=== PATIENT | female | born 1955 | race African-American/Black ===

== ENCOUNTER → 2016-07-28 | Outpatient (CLI) | payer OTHER ==
[2014-11-22 17:21] VITALS: BP 143/88
[~2016-07-28] MED LIST: ACET-704 PO; AMLO1CAP2 PO; BUDE10.2 IH; GOLI50DI SQ; PRED2.5T PO; WARF4TAB7 PO
[2016-07-28 16:35] LABS: INR 1.2 (0.8-1.1); PROTHROMBIN TIME PATIENT 14.5 SEC (11.7-14.0)
== END | disposition home or self-care (01) ==
LOC: LAB 15:59
PROVIDERS: ATTEND Nurse Practitioner Family
DX: Z79.01 Long term (current) use of anticoagulants (principal); Z86.718 Personal history of other venous thrombosis and embolism
CPT/HCPCS: 36415; 85610

== ENCOUNTER 2016-11-03 15:30 | Emergency (ER) | payer OTHER ==
[~2016-11-03] VITALS: Ht 162.6 cm; Wt 74.4 kg
--- NOTE | 2016-11-03 16:36 | RAD ---
Exam performed: Left lower extremity venous Doppler. Clinical Indication: Left leg swelling Date of Service:11/03/16 Comparison : None available Discussion: Multiple longitudinal and transverse high resolution real-time images of the venous system of left lower extremity were obtained with color and Doppler sampling and spectral analysis. The common femoral, superficial femoral, popliteal and proximal calf veins are all patent and demonstrate normal flow and compressibility. Normal respiratory phasicity and augmentation is present. Impression: Normal color duplex ultrasound of the venous system of left lower extremity.
[2016-11-03 17:00] LABS: INR 1.9 (0.8-1.1); PROTHROMBIN TIME PATIENT 20.8 SEC (11.7-14.0)
[2016-11-03 17:02] VITALS: BP 120/81
[2016-11-03] MEDS ORDERED: HYDR-971 PO (17:07)
--- NOTE | 2016-11-03 17:07 | PHYS DOC ---
Past Medical History Past Medical History: Arthritis, Diabetes-Type II, DVT, Hypothyroid, Kidney Stone Past Surgical History: Other Additional Past Surgical Histo: bilat knee, r hip, kidney stents Drug Use: None Adult General Chief Complaint Chief Complaint: LOWER EXTREMITY SWELLING [facility] HPI Patient is a 61 year old female presenting to the emergency department for evaluation of left anterior tomlin swelling and pain that has been present for several days. The nurse at school told her it could be a DVT and sent her for further evaluation. Patient says she has some pain there but she denies any trauma or overuse. She is already on Coumadin. Review of Systems Review of Systems Constitutional: Denies fever or chills [] Respiratory: Denies cough or shortness of breath [] Cardiovascular: No additional information not addressed in HPI [] Musculoskeletal: Denies back pain or joint pain [] Integument: Denies rash or skin lesions [] Neurologic: Denies headache, focal weakness or sensory changes [] Allergies Allergies Allergies Coded Allergies Type Severity Reaction Last Updated Verified No Known Drug Allergies 11/22/14 No Physical Exam Physical Exam Constitutional: Well developed, well nourished, no acute distress, non-toxic appearance. [] Cardiovascular:Heart rate regular rhythm, no murmur [] Lungs & Thorax: Bilateral breath sounds clear to auscultation [] Abdomen: Bowel sounds normal, soft, no tenderness, no masses, no pulsatile masses. [] Skin: Warm, dry, no erythema, no rash. [] Extremities: Left anterior tomlin with approximate 5 x 3 area swelling but no redness warmth or erythema. Neurologic: Alert and oriented X 3, normal motor function, normal sensory function, no focal deficits noted. [] Current Patient Data Vital Signs Vital Signs Date Time Temp Pulse Resp B/P (MAP) Pulse Ox O2 Delivery O2 Flow Rate FiO2 11/03/16 17:02 78 18 120/81 (94) 97 Room Air 11/03/16 16:02 97.9 97.9 Lab Values Laboratory Tests Test 11/03/16 16:34 White Blood Count 8.2 x10^3/uL (4.0-11.0) Red Blood Count 5.03 x10^6/uL (3.50-5.40) Hemoglobin 14.9 g/dL (12.0-15.5) Hematocrit 44.0 % (36.0-47.0) Mean Corpuscular Volume 88 fL (79-100) Mean Corpuscular Hemoglobin 30 pg (25-35) Mean Corpuscular Hemoglobin Concent 34 g/dL (31-37) Red Cell Distribution Width 16.0 % (11.5-14.5) H Platelet Count 212 x10^3/uL (140-400) Neutrophils (%) (Auto) 71 % (31-73) Lymphocytes (%) (Auto) 21 % (24-48) L Monocytes (%) (Auto) 7 % (0-9) Eosinophils (%) (Auto) 0 % (0-3) Basophils (%) (Auto) 1 % (0-3) Neutrophils # (Auto) 5.8 x10^3uL (1.8-7.7) Lymphocytes # (Auto) 1.7 x10^3/uL (1.0-4.8) Monocytes # (Auto) 0.6 x10^3/uL (0.0-1.1) Eosinophils # (Auto) 0.0 x10^3/uL (0.0-0.7) Basophils # (Auto) 0.0 x10^3/uL (0.0-0.2) Prothrombin Time 20.8 SEC (11.7-14.0) H Prothrombin Time INR 1.9 (0.8-1.1) H PTT 31 SEC (24-38) Sodium Level 141 mmol/L (136-145) Potassium Level 4.2 mmol/L (3.5-5.1) Chloride Level 105 mmol/L (98-107) Carbon Dioxide Level 28 mmol/L (21-32) Anion Gap 8 (6-14) Blood Urea Nitrogen 22 mg/dL (7-20) H Creatinine 1.0 mg/dL (0.6-1.0) Estimated GFR (Cockcroft-Gault) 67.8 BUN/Creatinine Ratio 22 (6-20) H Glucose Level 101 mg/dL (70-99) H Calcium Level 10.1 mg/dL (8.5-10.1) Total Bilirubin 0.4 mg/dL (0.2-1.0) Aspartate Amino Transferase (AST) 23 U/L (15-37) Alanine Aminotransferase (ALT) 34 U/L (14-59) Alkaline Phosphatase 93 U/L (46-116) Total Protein 7.8 g/dL (6.4-8.2) Albumin 3.5 g/dL (3.4-5.0) Albumin/Globulin Ratio 0.8 (1.0-1.7) L Laboratory Tests 11/03/16 16:34 Laboratory Tests 11/03/16 16:34 EKG EKG [] Radiology/Procedures Radiology/Procedures Exam performed: Left lower extremity venous Doppler. Clinical Indication: Left leg swelling Date of Service:11/03/16 Comparison : None available Discussion: Multiple longitudinal and transverse high resolution real-time images of the venous system of left lower extremity were obtained with color and Doppler sampling and spectral analysis. The common femoral, superficial femoral, popliteal and proximal calf veins are all patent and demonstrate normal flow and compressibility. Normal respiratory phasicity and augmentation is present. Impression: Normal color duplex ultrasound of the venous system of left lower extremity. DICTATED and SIGNED BY: TANNER NORIEGA MD DATE: 11/03/16 1633 Course & Med Decision Making Course & Med Decision Making Patient with left anterior tomlin swelling. We'll treat with rest NSAIDs and PCP follow-up next week to ensure improvement. Dragon Disclaimer Dragon Disclaimer This electronic medical record was generated, in whole or in part, using a voice recognition dictation system. Departure Departure Impression: Primary Impression: Leg pain, left Disposition: 01 HOME, SELF-CARE Condition: GOOD Referrals: FAM FARMER APRN (PCP) Patient Instructions: Myalgia, Adult Additional Instructions: TAKE 400MG OF IBUPROFEN EVERY 6 HOURS. PUT ICE ON YOUR LEG, REST IT, ELEVATE IT. FOLLOW WITH YOUR PCP NEXT WEEK TO ENSURE IMPROVEMENT AND COME BACK SOONER WITH ANY NEW OR WORSENING SYMPTOMS. THANK YOU! Scripts Hydrocodone/Apap 5-325 (NORCO 5-325 TABLET) 1 Each Tablet 1 TAB PO PRN Q6HRS Y for PAIN, #10 TAB 0 Refills Prov: SUNDAR RAMEY DO 11/03/16 SUNDAR RAMEY DO November 03, 2016 17:07
[2016-11-03 17:10] LABS: CALCIUM 10.1 mg/dL (8.5-10.1); GFR 67.8; POTASSIUM 4.2 mmol/L (3.5-5.1)
[2016-11-03 17:16] LABS: ALBUMIN 3.5 g/dL (3.4-5.0); ALBUMIN/GLOBULIN RATIO 0.8 (1.0-1.7); TOTAL BILIRUBIN 0.4 mg/dL (0.2-1.0); TOTAL PROTEIN 7.8 g/dL (6.4-8.2)
[2016-11-03 17:17] LABS: BASO % 1 % (0-3); EOS % 0 % (0-3); HEMOGLOBIN 14.9 g/dL (12.0-15.5); LYMPH # 1.7 x10^3/uL (1.0-4.8); LYMPH % 21 % (24-48); MEAN CORPUSCULAR HEMOGLOBIN 30 pg (25-35); MEAN CORPUSCULAR HGB CONC 34 g/dL (31-37); MEAN CORPUSCULAR VOLUME 88 fL (79-100); MONO % 7 % (0-9); NEUT % 71 % (31-73); PLATELET COUNT 212 x10^3/uL (140-400); RED BLOOD COUNT 5.03 x10^6/uL (3.50-5.40); WHITE BLOOD COUNT 8.2 x10^3/uL (4.0-11.0)
== END 2016-11-03 17:20 | disposition home or self-care (01) ==
LOC: ER 15:30
DX: M79.662 Pain in left lower leg (principal); R22.42 Localized swelling, mass and lump, left lower limb; M19.90 Unspecified osteoarthritis, unspecified site; E11.9 Type 2 diabetes mellitus without complications; E03.9 Hypothyroidism, unspecified; Z86.718 Personal history of other venous thrombosis and embolism; Z98.890 Other specified postprocedural states
CPT/HCPCS: 36415; 80053; 85027; 85610; 85730; 93971; 99285-25

== ENCOUNTER → 2017-03-03 | Outpatient (CLI) | payer OTHER ==
[~2017-03-03] MED LIST changes: +HYDR-971 PO
--- NOTE | 2017-03-03 13:03 | RAD ---
DATE: 03/03/2017 EXAM: DIGITAL SCREEN BILAT W/CAD HISTORY: Screening COMPARISON: 02/26/2016 This study was interpreted with the benefit of Computerized Aided Detection (CAD). FINDINGS: Breast Density: SCATTERED The breast parenchyma shows scattered fibroglandular densities. Breast parenchyma level B. There are benign-appearing calcifications in the breasts. There are lymph nodes noted in both axilla. There has not been a significant change in the appearance of the breasts compared to the previous exam IMPRESSION: Benign findings BI-RADS CATEGORY: 2 BENIGN FINDING(S) RECOMMENDED FOLLOW-UP: 12M 12 MONTH FOLLOW-UP PQRS compliance statement: Patient information was entered into a reminder system with a target due date 03/03/2018 for the next mammogram. Mammography is a sensitive method for finding small breast cancers, but it does not detect them all and is not a substitute for careful clinical examination. A negative mammogram does not negate a clinically suspicious finding and should not result in delay in biopsying a clinically suspicious abnormality. "Our facility is accredited by the [employer] Mammography Program."
== END | disposition home or self-care (01) ==
LOC: MAMMO 10:42
PROVIDERS: ATTEND Nurse Practitioner Family
DX: Z12.31 Encounter for screening mammogram for malignant neoplasm of breast (principal)
CPT/HCPCS: G0202; 77067

== ENCOUNTER → 2017-07-21 | Outpatient (CLI) | payer OTHER ==
[2017-07-21 13:20] LABS: ADD MAN DIFF? NO
[2017-07-21 13:32] LABS: BASO % 1 % (0-3); EOS % 0 % (0-3); HEMATOCRIT 45.1 % (36.0-47.0); HEMOGLOBIN 14.5 g/dL (12.0-15.5); LYMPH % 23 % (24-48); MEAN CORPUSCULAR HEMOGLOBIN 29 pg (25-35); MEAN CORPUSCULAR HGB CONC 32 g/dL (31-37); MEAN CORPUSCULAR VOLUME 88 fL (79-100); MONO # 0.3 x10^3/uL (0.0-1.1); MONO % 3 % (0-9); NEUT # 6.7 x10^3uL (1.8-7.7); NEUT % 74 % (31-73); PLATELET COUNT 219 x10^3/uL (140-400); RED CELL DISTRIBUTION WIDTH 15.3 % (11.5-14.5)
[2017-07-21 13:45] LABS: ALBUMIN 3.6 g/dL (3.4-5.0); ALBUMIN/GLOBULIN RATIO 0.8 (1.0-1.7); ALK PHOS 80 U/L (46-116); ALT (SGPT) 23 U/L (14-59); ANION GAP 13 (6-14); AST (SGOT) 16 U/L (15-37); BLOOD UREA NITROGEN 18 mg/dL (7-20); BUN/CREATININE RATIO 16 (6-20); CALCIUM 9.8 mg/dL (8.5-10.1); CARBON DIOXIDE 23 mmol/L (21-32); CHLORIDE 109 mmol/L (98-107); CHOLESTEROL 231 mg/dL (0-200); CHOLESTEROL/HDL RATIO 3.1; CREATININE 1.1 mg/dL (0.6-1.0); GFR 60.7; GLUCOSE 210 mg/dL (70-99); HDLC 74 mg/dL (40-60); LDLC 138 mg/dL (0-100); NON-HDL CHOLESTEROL 157 mg/dL (0-129); POTASSIUM 4.3 mmol/L (3.5-5.1); SODIUM 145 mmol/L (136-145); TOTAL BILIRUBIN 0.2 mg/dL (0.2-1.0); TOTAL PROTEIN 7.9 g/dL (6.4-8.2); TRIGLYCERIDES 94 mg/dL (0-150); VLDLC 19 mg/dL (0-40)
[2017-07-21 14:10] LABS: FREE T4 0.66 ng/dL (0.76-1.46)
[2017-07-21 14:10] LABS: THYROID STIM HORMONE (TSH) 0.687 uIU/mL (0.358-3.74)
[2017-07-21 19:18] LABS: HEMOGLOBIN A1C 6.8 % (4.8-5.6)
== END | disposition home or self-care (01) ==
LOC: LAB 13:09
DX: I10 Essential (primary) hypertension (principal); E11.9 Type 2 diabetes mellitus without complications; E78.00 Pure hypercholesterolemia, unspecified; E05.90 Thyrotoxicosis, unspecified without thyrotoxic crisis or storm
CPT/HCPCS: 36415; 80053; 80061; 83036; 84439; 84443; 85025

== ENCOUNTER → 2017-10-08 | Outpatient (CLI) | payer OTHER ==
[2017-10-08 08:55] LABS: ALBUMIN 3.4 g/dL (3.4-5.0); ALBUMIN/GLOBULIN RATIO 0.8 (1.0-1.7); ALK PHOS 89 U/L (46-116); ALT (SGPT) 30 U/L (14-59); ANION GAP 10 (6-14); AST (SGOT) 18 U/L (15-37); BLOOD UREA NITROGEN 14 mg/dL (7-20); BUN/CREATININE RATIO 13 (6-20); CALCIUM 10.1 mg/dL (8.5-10.1); CARBON DIOXIDE 24 mmol/L (21-32); CHLORIDE 107 mmol/L (98-107); CHOLESTEROL 263 mg/dL (0-200); CREATININE 1.1 mg/dL (0.6-1.0); GFR 60.5; GLUCOSE 108 mg/dL (70-99); HDLC 69 mg/dL (40-60); LDLC 172 mg/dL (0-100); NON-HDL CHOLESTEROL 194 mg/dL (0-129); POTASSIUM 3.5 mmol/L (3.5-5.1); SODIUM 141 mmol/L (136-145); TOTAL BILIRUBIN 0.5 mg/dL (0.2-1.0); TOTAL PROTEIN 7.7 g/dL (6.4-8.2); TRIGLYCERIDES 111 mg/dL (0-150); VLDLC 22 mg/dL (0-40)
[2017-10-08 08:57] LABS: CHOLESTEROL/HDL RATIO 3.8
== END | disposition home or self-care (01) ==
LOC: LAB 08:17
DX: E78.00 Pure hypercholesterolemia, unspecified (principal)
CPT/HCPCS: 36415; 80053; 80061

== ENCOUNTER → 2017-11-19 | Outpatient (CLI) | payer OTHER ==
[2017-11-20 01:14] LABS: HEMOGLOBIN A1C 7.1 % (4.8-5.6)
== END | disposition home or self-care (01) ==
LOC: LAB 11:50
DX: E11.9 Type 2 diabetes mellitus without complications (principal); I10 Essential (primary) hypertension; E78.00 Pure hypercholesterolemia, unspecified
CPT/HCPCS: 36415; 83036

== ENCOUNTER → 2018-02-16 | Outpatient (CLI) | payer OTHER ==
[~2018-02-16] MED LIST changes: +WARF4TAB64 PO; -WARF4TAB7 PO
[2018-02-16 14:26] LABS: PROTHROMBIN TIME PATIENT 18.8 SEC (11.7-14.0)
== END | disposition home or self-care (01) ==
LOC: LAB 13:53
PROVIDERS: ATTEND Nurse Practitioner Family
DX: Z51.81 Encounter for therapeutic drug level monitoring (principal); I10 Essential (primary) hypertension; E11.9 Type 2 diabetes mellitus without complications; E78.00 Pure hypercholesterolemia, unspecified; M19.90 Unspecified osteoarthritis, unspecified site; Z72.0 Tobacco use; Z86.718 Personal history of other venous thrombosis and embolism; Z79.01 Long term (current) use of anticoagulants
CPT/HCPCS: 36415; 85610

== ENCOUNTER → 2018-03-04 | Outpatient (CLI) | payer OTHER ==
--- NOTE | 2018-03-04 10:40 | RAD ---
DATE: 03/04/2018 EXAM: MAMMO LUCILA SCREENING BILATERAL HISTORY: Routine screening COMPARISON: 03/03/2017 This study was interpreted with the benefit of Computerized Aided Detection (CAD). Breast Density: HETERO The breast parenchyma is heterogenously dense, which could reduce sensitivity of mammography. Breast parenchyma level C. FINDINGS: 2-D and 3-D tomosynthesis imaging was performed in CC and MLO projections. The fibroglandular tissues are heterogeneously multinodular pattern. There are also calcified fibroadenomas. Additional scattered coarse and more indeterminant type microcalcifications in both breasts appear unchanged. Benign lymph node type densities are present in the axillary regions. IMPRESSION: Stable mammograms without evidence of malignancy. BI-RADS CATEGORY: 2 BENIGN FINDING(S) RECOMMENDED FOLLOW-UP: 12M 12 MONTH FOLLOW-UP PQRS compliance statement: Patient information was entered into a reminder system with a target due date for the next mammogram. Mammography is a sensitive method for finding small breast cancers, but it does not detect them all and is not a substitute for careful clinical examination. A negative mammogram does not negate a clinically suspicious finding and should not result in delay in biopsying a clinically suspicious abnormality. "Our facility is accredited by the [employer] Mammography Program."
== END | disposition home or self-care (01) ==
LOC: MAMMO 09:00
PROVIDERS: ATTEND Nurse Practitioner Family
DX: Z12.31 Encounter for screening mammogram for malignant neoplasm of breast (principal); I10 Essential (primary) hypertension; E11.9 Type 2 diabetes mellitus without complications; E78.00 Pure hypercholesterolemia, unspecified; E03.9 Hypothyroidism, unspecified; Z86.718 Personal history of other venous thrombosis and embolism
CPT/HCPCS: 77063; 77067

== ENCOUNTER → 2018-03-23 | Outpatient (CLI) | payer OTHER ==
[2018-03-23 14:04] LABS: PROTHROMBIN TIME PATIENT 22.8 SEC (11.7-14.0)
== END | disposition home or self-care (01) ==
LOC: LAB 13:32
PROVIDERS: ATTEND Nurse Practitioner Family
DX: Z51.81 Encounter for therapeutic drug level monitoring (principal); Z79.01 Long term (current) use of anticoagulants
CPT/HCPCS: 36415; 85610

== ENCOUNTER → 2018-09-08 | Outpatient (CLI) | payer BC, OTHER ==
[~2018-09-08] MED LIST changes: +HYDR-3164 PO; -HYDR-971 PO
--- NOTE | 2018-09-08 14:13 | KCIC ---
EXAM: Lumbar spine MRI without contrast. HISTORY: Lower back pain and lower extremity radiculopathy. TECHNIQUE: Multiplanar, multisequence magnetic resonance imaging of the lumbar spine was performed without contrast. COMPARISON: None. FINDINGS: There is grade 1 anterolisthesis of L3 on L4, measuring 4 mm. There is degenerative endplate remodeling with disc space narrowing and disc desiccation at this level. There is additional mild endplate remodeling and minimal disc desiccation at L5-S1. There is diffusely heterogeneous marrow signal intensity. This can be seen with heterogeneous fatty marrow placement. There is no corresponding increased signal on inversion recovery images associated with the marrow to suggest osseous metastatic disease. The conus terminates at T12-L1. At L1-L2, there is no stenosis. At L2-L3, there is minimal facet arthropathy. There is no stenosis. At L3-L4, there is a posterior central disc protrusion and there are bilateral foraminal to extra foraminal disc protrusions with slight superior extrusions superimposed on a disc bulge and endplate remodeling. There is moderate facet arthropathy. There is hypertrophy of the ligamentum flavum. There is grade 1 anterolisthesis. There is mild bilateral foraminal stenosis with abutment of the exiting L3 nerve roots. There is moderate central canal stenosis. At L4-L5, there is mild right lateral predominant endplate remodeling. There is no stenosis. At L5-S1, there is mild right facet arthropathy. There is no stenosis. IMPRESSION: 1. Multilevel degenerative change of the lumbar spine, primarily at L3-L4. This is described in detail above and is associated with mild bilateral foraminal stenosis and abutment of the exiting L3 nerve roots and moderate central canal stenosis at this level. 2. Grade 1 anterolisthesis of L3 on L4. Electronically signed by: Aminah Jackson MD (09/08/2018 2:09 PM) [email or web address]
== END | disposition home or self-care (01) ==
LOC: KCIC MRI 12:49
PROVIDERS: ATTEND Nurse Practitioner Family
DX: M48.061 Spinal stenosis, lumbar region without neurogenic claudication (principal); M47.26 Other spondylosis with radiculopathy, lumbar region; M51.16 Intervertebral disc disorders with radiculopathy, lumbar region; M12.88 Other specific arthropathies, not elsewhere classified, other specified site
CPT/HCPCS: 72148

== ENCOUNTER → 2018-10-07 | Outpatient (CLI) | payer BC, OTHER ==
[2018-10-07 08:29] LABS: BILIRUBIN,URINE NEGATIVE (NEG); CLARITY,URINE CLEAR; COLOR,URINE YELLOW; NITRITE,URINE NEGATIVE (NEG); PH,URINE 5.5; PROTEIN,URINE NEGATIVE (NEG-TRACE); UROBILINOGEN,URINE 0.2 mg/dL (0.2 mg/dL)
[2018-10-07 08:39] LABS: BACTERIA,URINE MANY /HPF (0-FEW); SQUAMOUS EPITHELIAL CELL,UR MANY /LPF
[2018-10-07 08:40] LABS: RBC,URINE OCC /HPF (0-2)
[2018-10-07 08:44] LABS: ALBUMIN 3.6 g/dL (3.4-5.0); ALBUMIN/GLOBULIN RATIO 0.9 (1.0-1.7); CALCIUM 10.2 mg/dL (8.5-10.1); CREATININE 1.1 mg/dL (0.6-1.0); GFR 60.3; POTASSIUM 4.4 mmol/L (3.5-5.1); TOTAL BILIRUBIN 0.4 mg/dL (0.2-1.0); TOTAL PROTEIN 7.5 g/dL (6.4-8.2)
[2018-10-07 08:55] LABS: CHOLESTEROL/HDL RATIO 3.6
[2018-10-07 13:21] LABS: CREAT RD UR 166.3 mg/dL (Not Estab.); MICRO CREAT RATIO 2.8 mg/g creat (0.0-30.0); MICROALB RD UR 4.7 ug/mL (Not Estab.)
[2018-10-10 17:59] LABS: FECAL OB PT POSITIVE (NEG)
== END | disposition home or self-care (01) ==
LOC: LAB 07:34
PROVIDERS: ATTEND Family Medicine
DX: Z12.11 Encounter for screening for malignant neoplasm of colon (principal); I10 Essential (primary) hypertension; E78.00 Pure hypercholesterolemia, unspecified; R73.09 Other abnormal glucose; Z79.01 Long term (current) use of anticoagulants; Z79.899 Other long term (current) drug therapy
CPT/HCPCS: 36415; 80053; 80061; 81001; 82043; 82274; 82570; 83036; 85610; 87086

== ENCOUNTER → 2019-01-13 | Day surgery (SDC) | payer BC, MEDICAID ==
[~2019-01-13] MED LIST changes: +HYDROmorphone 2 MG/ML VIAL IV PRN; +IV RINGERS,LACTATED 1000ML 1,000 ML IV SCH; +MORPHINE SULFATE 2 MG/ML VIAL. IV PRN; +ONDANSETRON PF 4 MG/2 ML VIAL. IV PRN; +PROCHLORPERAZINE 10 MG/2 ML VIAL. IV PRN; +PROPOFOL 20 ML IV ONE; +fentaNYL PF VIAL 100 MCG/2 ML VIAL IV PRN
[2019-01-13 10:30] VITALS: BP 140/69
== END ==
LOC: ENDOS 08:26
PROVIDERS: ATTEND Internal Medicine Gastroenterology
DX: K64.0 First degree hemorrhoids (principal); K29.70 Gastritis, unspecified, without bleeding; K21.0 Gastro-esophageal reflux disease with esophagitis; I10 Essential (primary) hypertension; F15.90 Other stimulant use, unspecified, uncomplicated; Z98.890 Other specified postprocedural states; Z86.010 Personal history of colon polyps; Z86.718 Personal history of other venous thrombosis and embolism; Z87.891 Personal history of nicotine dependence; Z96.653 Presence of artificial knee joint, bilateral; Z96.641 Presence of right artificial hip joint
CPT/HCPCS: 45378; J2704

== ENCOUNTER → 2019-04-13 | Outpatient (CLI) | payer BC, MEDICAID ==
[2019-01-13 10:30] VITALS: BP 140/69
[~2019-04-13] MED LIST changes: -HYDROmorphone 2 MG/ML VIAL IV PRN; -IV RINGERS,LACTATED 1000ML 1,000 ML IV SCH; -MORPHINE SULFATE 2 MG/ML VIAL. IV PRN; -ONDANSETRON PF 4 MG/2 ML VIAL. IV PRN; -PROCHLORPERAZINE 10 MG/2 ML VIAL. IV PRN; -PROPOFOL 20 ML IV ONE; -fentaNYL PF VIAL 100 MCG/2 ML VIAL IV PRN
--- NOTE | 2019-04-13 16:16 | RAD ---
DATE: 04/13/2019 EXAM: MAMMO LUCILA SCREENING BILATERAL HISTORY: Routine screening COMPARISON: 02/26/2016, 03/03/2017 and 03/04/2018 mammographic exams This study was interpreted with the benefit of Computerized Aided Detection (CAD). Breast Density: HETERO The breast parenchyma is heterogenously dense, which could reduce sensitivity of mammography. Breast parenchyma level C. FINDINGS: Numerous benign-appearing calcifications are present bilaterally. Some of these appear to correspond to calcified fibroadenomas. No suspicious calcification clusters or distortion. Small masses are stable. No new masses. IMPRESSION: Stable BI-RADS CATEGORY: 1 NEGATIVE RECOMMENDED FOLLOW-UP: 12M 12 MONTH FOLLOW-UP PQRS compliance statement: Patient information was entered into a reminder system with a target due date for the next mammogram. Mammography is a sensitive method for finding small breast cancers, but it does not detect them all and is not a substitute for careful clinical examination. A negative mammogram does not negate a clinically suspicious finding and should not result in delay in biopsying a clinically suspicious abnormality. "Our facility is accredited by the [employer] Mammography Program."
== END | disposition home or self-care (01) ==
LOC: MAMMO 14:20
PROVIDERS: ATTEND Nurse Practitioner Family
DX: Z12.31 Encounter for screening mammogram for malignant neoplasm of breast (principal)
CPT/HCPCS: 77063; 77067

== ENCOUNTER → 2020-05-25 | Outpatient (CLI) | payer BC, OTHER ==
[2019-01-13 10:30] VITALS: BP 140/69
--- NOTE | 2020-06-03 09:28 | RAD ---
BILATERAL SCREENING MAMMOGRAM, 3-D History: Routine screening. Comparison: 04/13/2019, 03/04/2018, 03/03/2017, 02/26/2016. Technique: MLO and CC digital tomosynthesis (3D) images obtained. Radiologist reviewed these images on dedicated workstation. Findings: Breast Tissue Density B : There are scattered areas of fibroglandular density. There are no dominant masses, suspicious microcalcifications, or architectural distortion. There is increased posterior calcifications are right breast with no associated mass or distortion. Calcifications are coarse in appearance. It is 11.2 cm from the nipple. Patient has numerous other calcifications throughout the breasts however. IMPRESSION: Increasing cluster of calcifications involving the right posterior breast. Spot magnification imaging is recommended. Ultrasound may be needed. BI-RADS Category 0: Incomplete: Need additional imaging evaluation. The images were reviewed with computer-aided detection. Patient information is entered into reminder system with a target due date for the next screening mammogram. Mammography is the most sensitive method for finding small breast cancers, but it does not detect them all and is not a substitute for careful clinical examination. A negative mammogram does not negate a clinically suspicious finding and should not result in delay in biopsying a clinically suspicious abnormality. "Our facility is accredited by the [employer] Mammography Program." Electronically signed by: Chris Salas MD (06/03/2020 9:25 AM) [email or web address]
== END ==
LOC: MAMMO 08:19
PROVIDERS: ATTEND Nurse Practitioner Family
DX: Z12.31 Encounter for screening mammogram for malignant neoplasm of breast (principal)
CPT/HCPCS: 77063; 77067

== ENCOUNTER → 2020-06-05 | Outpatient (CLI) | payer BC, OTHER ==
[2019-01-13 10:30] VITALS: BP 140/69
--- NOTE | 2020-06-05 13:32 | RAD ---
Examination: DIGITAL DIAGNOSTIC RT History: ABNORMAL MAMM CALLBACK / Comparison/Correlation: None Findings: Spot magnification imaging of the posterior inner right breast was performed. CAD utilized. Coarse benign-appearing calcifications are present. No masses identified. Breast Tissue Density B : There are scattered areas of fibroglandular density. Impression: BI-RADS Category 1-negative. Annual screening mammography recommended. Electronically signed by: Crhis Salas MD (06/05/2020 1:30 PM) [id number]
== END ==
LOC: MAMMO 07:49
PROVIDERS: ATTEND Nurse Practitioner Family
DX: R92.2 Inconclusive mammogram (principal)
CPT/HCPCS: 77065

== ENCOUNTER → 2020-08-08 | Outpatient (CLI) | payer BC, OTHER ==
[2019-01-13 10:30] VITALS: BP 140/69
--- NOTE | 2020-08-08 16:25 | KCIC ---
EXAM: Right hip and pelvis, 3 views. HISTORY: Fall. Pain. COMPARISON: None. FINDINGS: A frontal view the pelvis and frontal and frog-leg views of the right hip are obtained. The re is a revision right hip arthroplasty in expected position. There are cerclage wires traversing the femoral stem component. There is mild marginal left femoral head spurring. There is interspinous dec ompression device at L3-L4, partially included on the [id number]. IMPRESSION: 1. Revision right hip arthroplasty in expected position. 2. Mild left hip osteoarthritis. Electronically signed by: Aminah Jackson MD (08/08/2020 4:22 PM) [id number]
== END ==
LOC: KCIC 14:45
PROVIDERS: ATTEND Nurse Practitioner Family
DX: M16.12 Unilateral primary osteoarthritis, left hip (principal)
CPT/HCPCS: 73502

== ENCOUNTER → 2020-08-13 | Outpatient (CLI) | payer BC, OTHER ==
[2019-01-13 10:30] VITALS: BP 140/69
[2020-08-13 11:06] LABS: HEMATOCRIT 41.5 % (36.0-47.0); HEMOGLOBIN 13.4 g/dL (12.0-15.5); RED BLOOD COUNT 4.75 x10^6/uL (3.50-5.40); RED CELL DISTRIBUTION WIDTH 14.7 % (11.5-14.5); WHITE BLOOD COUNT 9.9 x10^3/uL (4.0-11.0)
[2020-08-13 11:20] LABS: PROTHROMBIN TIME PATIENT 30.6 SEC (11.7-14.0)
[2020-08-13 11:27] LABS: ALBUMIN 3.7 g/dL (3.4-5.0); ALBUMIN/GLOBULIN RATIO 0.9 (1.0-1.7); CALCIUM 9.2 mg/dL (8.5-10.1); CREATININE 1.1 mg/dL (0.6-1.0); GFR 60.1; TOTAL BILIRUBIN 0.7 mg/dL (0.2-1.0); TOTAL PROTEIN 7.7 g/dL (6.4-8.2)
[2020-08-13 11:30] LABS: CHOLESTEROL/HDL RATIO 2.4
[2020-08-13 11:42] LABS: FREE T4 0.83 ng/dL (0.76-1.46); THYROID STIM HORMONE (TSH) 4.336 uIU/mL (0.358-3.74)
[2020-08-14 01:09] LABS: HEMOGLOBIN A1C 6.6 % (4.8-5.6)
== END ==
LOC: LAB 10:48
PROVIDERS: ATTEND Nurse Practitioner Family
DX: E11.9 Type 2 diabetes mellitus without complications (principal); I10 Essential (primary) hypertension; E78.5 Hyperlipidemia, unspecified; E05.90 Thyrotoxicosis, unspecified without thyrotoxic crisis or storm; Z86.718 Personal history of other venous thrombosis and embolism
CPT/HCPCS: 36415; 80053; 80061; 82043; 83036; 84439; 84443; 85027; 85610

== ENCOUNTER 2020-12-11 15:16 | Observation (INO) | payer OTHER ==
[~2020-12-11] VITALS: Ht 160 cm; Wt 78.7 kg
--- NOTE | 2020-12-11 15:44 | PHYS DOC ---
Past Medical History Past Medical History: Arthritis, Diabetes-Type II, DVT, Hypothyroid, Kidney Stone Past Surgical History: Other Additional Past Surgical Histo: bilat knee, r hip, kidney stents Smoking Status: Never Smoker Alcohol Use: None Drug Use: None General Adult EDM: Chief Complaint: CHEST PAIN HPI: HPI: Patient is a 65 year old female past medical history hypertension hyperlipidemia osteoarthritis DVTs on warfarin presents with a chief complaint of left sided chest discomfort, chest pain, and shortness of breath. Patient states 1 week ago she started experience discomfort in her left rib area. Pain was associated with shortness of breath. Shortness of breath and pain exacerbated by deep breaths. This a.m. around 100 0 hours patient started experiencing substernal chest pain. Patient describes the pain as a pressure. She states the pain did not radiate. Patient states pain comes and goes. Pain was initially a 10 out of 10 is currently a 2 out of 10. Patient's chest pain is associated with shortness of breath. Review of Systems: Review of Systems: Review of systems: Constitutional symptoms- No fever, no chills. Eyes- No Discharge, No Visual Loss Respiratory symptoms- Positive shortness of breath, No wheezing, No Dyspnea on Exertion Cardiovascular Systems; Positive chest pain, No Palpitations, No syncope Gastrointestinal symptoms: NO abdominal pain, no nausea, no vomiting or diarrhea. Genitourinary symptoms: No dysuria. Musculoskeletal symptoms: No back pain No extremity pain. NEUROLOGICAL Symptoms: No headache, no generalized weakness; No focal Weakness Heart Score: C/O Chest Pain: Yes HEART Score for Chest Pain: HEART Score for Chest Pain Response (Comments) Value History Moderately Suspicious 1 ECG Nonspecific Repolarizatio 1 Age > 65 2 Risk Factors >3 Risk Factors or Hx CAD 2 Troponin < Normal Limit 0 Total 6 Risk Factors: Risk Factors: DM, Current or recent (<one month) smoker, HTN, HLP, family history of CAD, obesity. Risk Scores: Score 0 - 3: 2.5% MACE over next 6 weeks - Discharge Home Score 4 - 6: 20.3% MACE over next 6 weeks - Admit for Clinical Observation Score 7 - 10: 72.7% MACE over next 6 weeks - Early Invasive Strategies Allergies: Allergies: Allergies Coded Allergies Type Severity Reaction Last Updated Verified No Known Drug Allergies 01/13/19 No Physical Exam: PE: General: alert, no acute distress. Skin: warm, dry and intact. Head:: Normocephalic, atraumatic. Neck: Trachea midline. Eyes: EOMI, Normal conjunctiva, No drainage CARDIOVASCULAR: Regular rate and rhythm RESPIRATORY: No respiratory distress Back: Full range of motion. MUSCULOSKELETAL: Full range of motion of bilateral upper and lower extremities. GASTROINTESTINAL: Abdomen soft without rebound or guarding. NEUROLOGICAL: Alert and noted to person, place and time. No neurological deficits observed Psychiatric: Cooperative. Normal judgment Current Patient Data: Vital Signs: Vital Signs Date Time Temp Pulse Resp B/P (MAP) Pulse Ox O2 Delivery O2 Flow Rate FiO2 12/11/20 15:26 98.2 82 20 162/87 (112) Room Air 98.2 EKG: EKG: Normal Sinus Rhythm Rate [address] elevation No ST depression No acute MD Performed at 1525 [] Radiology/Procedures: Radiology/Procedures: [] Impression: CTA scan of the Chest with Contrast (Pulmonary Embolism protocol) 12/11/2020 Clinical History: Chest pain. Shortness of breath. History of DVT. Technique: After the intravenous administration of 100 cc of Omnipaque 350, contiguous, 0.625 mm axial sections were obtained through the chest. 2 mm axial and 3D MIP coronal and sagittal reconstructed images were obtained. One or more of the following individualized dose reduction techniques were utilized for this study: 1. Automated exposure control. 2. Adjustment of the mA and/or kV according to patient size. 3. Use of iterative reconstruction technique. Findings: Comparison is made to portable chest radiograph performed earlier today. No filling defect is seen within the major branches of either pulmonary artery. There is no CT evidence of pulmonary embolism. The heart is mildly enlarged. Atherosclerotic calcification of the thoracic aorta and its branches is noted. The thoracic aorta is mildly tortuous but tapers normally. A monitoring calcifications are seen scattered throughout both breasts. Minimal dependent subsegmental atelectasis is seen involving both lungs. No area of consolidation, pleural effusion or pneumothorax is seen. Impression: There is no CT evidence of pulmonary embolism. Course & Med Decision Making: Course & Med Decision Making Pertinent Labs and Imaging studies reviewed. (See chart for details) [] Patient was evaluated for chief complaint. Work-up consisted of laboratory analysis radiologic imaging and EKG. Results reviewed and discussed with patient. CT angio chest negative for PE. EKG and troponin no abnormalities. Patient was treated with aspirin. She was admitted to the hospitalist with a cardiology consult. Camilo Disclaimer: Camilo Disclaimer: This electronic medical record was generated, in whole or in part, using a voice recognition dictation system. Departure Departure Referrals: FAM FARMER APRN (PCP) KIMBERLY ORANTES DO Dec 11, 2020 15:44
--- NOTE | 2020-12-11 16:01 | RAD ---
XR CHEST 1V History: Reason: chest pain, Comparison: None. Findings: No consolidation or pleural effusion. Normal heart size. No pneumothorax. Impression: 1. No acute cardiopulmonary process. Electronically signed by: Kale Rausch DO (12/11/2020 3:59 PM) [id number]
[2020-12-11 16:41] LABS: BASO # 0.1 x10^3/uL (0.0-0.2); BASO % 1 % (0-3); EOS % 0 % (0-3); HEMATOCRIT 40.4 % (36.0-47.0); HEMOGLOBIN 13.6 g/dL (12.0-15.5); LYMPH # 2.3 x10^3/uL (1.0-4.8); LYMPH % 26 % (24-48); MEAN CORPUSCULAR HEMOGLOBIN 29 pg (25-35); MEAN CORPUSCULAR HGB CONC 34 g/dL (31-37); MEAN CORPUSCULAR VOLUME 85 fL (79-100); MONO # 0.5 x10^3/uL (0.0-1.1); MONO % 6 % (0-9); NEUT # 5.9 x10^3/uL (1.8-7.7); NEUT % 67 % (31-73); PLATELET COUNT 217 x10^3/uL (140-400); RED BLOOD COUNT 4.75 x10^6/uL (3.50-5.40); RED CELL DISTRIBUTION WIDTH 16.8 % (11.5-14.5); WHITE BLOOD COUNT 8.7 x10^3/uL (4.0-11.0)
[2020-12-11 16:43] LABS: PROTHROMBIN TIME PATIENT 26.4 SEC (11.7-14.0)
[2020-12-11 16:45] LABS: CALCIUM 8.9 mg/dL (8.5-10.1); CREATININE 1.1 mg/dL (0.6-1.0); GFR 59.9; POTASSIUM 4.3 mmol/L (3.5-5.1)
[2020-12-11 16:52] LABS: ALBUMIN 3.8 g/dL (3.4-5.0); ALBUMIN/GLOBULIN RATIO 1.2 (1.0-1.7); TOTAL BILIRUBIN 0.3 mg/dL (0.2-1.0)
[2020-12-11] MEDS ORDERED: CONTRAST GIVEN. MC PRN (17:00)
[2020-12-11] MEDS ORDERED: IOHEXOL 350 MG/ML 100 ML VIAL. IV ONE (17:00)
--- NOTE | 2020-12-11 17:11 | RAD ---
CTA scan of the Chest with Contrast (Pulmonary Embolism protocol) 12/11/2020 Clinical History: Chest pain. Shortness of breath. History of DVT. Technique: After the intravenous administration of 100 cc of Omnipaque 350, contiguous, 0.625 mm axia l sections were obtained through the chest. 2 mm axial and 3D MIP coronal and sagittal reconstructed images were obtained. One or more of the following individualized dose reduction techniques were utilized for this study: 1. Automated exposure control. 2. Adjustment of the mA and/or kV according to patient size. 3. Use of iterative reconstruction technique. Findings: Comparison is made to portable chest radiograph performed earlier today. No filling defect is seen within the major branches of either pulmonary artery. There is no CT eviden ce of pulmonary embolism. The heart is mildly enlarged. Atherosclerotic calcification of the thoracic aorta and its branches is noted. The thoracic aorta is mildly tortuous but tapers normally. A monito ring calcifications are seen scattered throughout both breasts. Minimal dependent subsegmental atelectasis is seen involving both lungs. No area of consolidation, pl eural effusion or pneumothorax is seen. Impression: There is no CT evidence of pulmonary embolism. Electronically signed by: Thomas Salcedo MD (12/11/2020 5:09 PM) [id number]
[2020-12-11] MEDS ORDERED: ONDANSETRON PF 4 MG/2 ML VIAL. IV PRN (17:45)
--- NOTE | 2020-12-11 17:53 | PDOC1 ---
History and Physical Date of Service: DOS: DATE: 12/11/20 TIME: 17:51 Chief Complaint: Chief Complain: Chest pain. History of Present Illness: HPI: Past Medical History: Arthritis, Diabetes-Type II, DVT, Hypothyroid, Kidney Stone Past Surgical History: Other Additional Past Surgical Histo: bilat knee, r hip, kidney stents Smoking Status: Never Smoker Alcohol Use: None Drug Use: None Patient is a 65 year old female past medical history hypertension hyperlipidemia osteoarthritis DVTs on warfarin presents with a chief complaint of left sided chest discomfort, chest pain, and shortness of breath. Patient states 1 week ago she started experience discomfort in her left rib area. Pain was associated with shortness of breath. Shortness of breath and pain exacerbated by deep breaths. This a.m. around 100 0 hours patient started experiencing substernal chest pain. Patient describes the pain as a pressure. She states the pain did not radiate. Patient states pain comes and goes. Pain was initially a 10 out of 10 is currently a 2 out of 10. Patient's chest pain is associated with shortness of breath. Past Medical/Surgical History: PMH/PSH: Past Medical History: Arthritis, Diabetes-Type II, DVT, Hypothyroid, Kidney Stone Past Surgical History: bilat knee, r hip, kidney stents Allergies: Allergies: Coded Allergies: No Known Drug Allergies (Unverified , 01/13/19) Family History: Family History: Reviewed with no relevant findings Social History: Social History: Smoking Status: Never Smoker Alcohol Use: None Drug Use: None Current Medications: Current Medications Current Medications Iohexol (Omnipaque 350 Mg/ml) 100 ml 1X ONCE IV Last administered on 12/11/20at 16:58; Start 12/11/20 at 17:00; Stop 12/11/20 at 17:01; Status DC Info (CONTRAST GIVEN -- Rx MONITORING) 1 each PRN DAILY PRN MC SEE COMMENTS; Start 12/11/20 at 17:00; Stop 12/13/20 at 16:59 Ondansetron HCl (Zofran) 4 mg PRN Q8HRS PRN IV NAUSEA/VOMITING; Start 12/11/20 at 17:45; Stop 12/12/20 at 17:44 Aspirin (Aspirin Chewable) 324 mg 1X ONCE PO ; Start 12/11/20 at 18:00; Stop 12/11/20 at 18:01 Active Scripts Active Reported Lotrel 10-40 Mg Capsule (Amlodipine Besylate/Benazepril) 1 Each Capsule 1 Each PO DAILY Symbicort 160-4.5 Mcg Inhaler (Budesonide/Formoterol Fumarate) 10.2 Gm Hfa.aer.ad 2 Puff IH BID Simponi (Golimumab) 50 Mg/0.5 Ml Disp.syrin 50 Mg SQ QMONTH Lotrel 10-40 Mg Capsule (Amlodipine Besylate/Benazepril) 1 Each Capsule 1 Cap PO DAILY Prednisone 2.5 Mg Tablet 2 Tab PO DAILY Warfarin Sodium 4 Mg Tablet 1 Tab PO DAILY ROS: Review of Systems Review of System REVIEW OF SYSTEMS: GENERAL: Denies weakness SKIN: No bruising, hair changes or rashes. EYES: No blurred, double or loss of vision. NOSE AND THROAT: No history of nosebleeds, hoarseness or sore throat. HEART: No history of palpitations, chest pain or shortness of breath on exertion. LUNGS: Denies cough, hemoptysis, wheezing or shortness of breath. GASTROINTESTINAL: Denies changes in appetite, nausea, vomiting, diarrhea or constipation. GENITOURINARY: No history of frequency, urgency, hesitancy or nocturia. NEUROLOGIC: Denies history of numbness, tingling, or tremor. PSYCHIATRIC: No history of panic, anxiety or depression. ENDOCRINE: No history of heat or cold intolerance, polyuria or polydipsia. EXTREMITIES: Denies joint pain, pain on walking or stiffness. Physical Exam: Vital Signs: Vital Signs Date Time Temp Pulse Resp B/P (MAP) Pulse Ox O2 Delivery O2 Flow Rate FiO2 12/11/20 16:22 76 125/74 (91) 97 Room Air 12/11/20 15:26 98.2 20 98.2 Physcial Exam: GEN: No apparent distress. Alert and oriented HEENT: Normal cephalic, atraumatic, external auditory canals are patent EYES: Extraocular muscles are intact, pupil are equally round and reactive to light and accommodation MUSCULOSKELETAL: Well developed , well nourished, good range of motion ENDOCRINE: No thyromegaly was palpated LYMPHATICS: No cervical chain or axillary nodes were noted HEMATOPOIETIC: No bruising NECK: Supple, no JVD, no thyromegaly was noted LUNGS: Clear to auscultation in all lung manc[place] without rhonchi or wheezing HEART: RRR, S!, S2 present. Peripheral pulses intact, no obvious murmurs noted ABDOMEN: Soft, nontender. Positive bowel sounds, no organomegaly, normal bowel sounds EXTREMITIES: Without clubbing, cyanosis, or edema. Pedal pulses intact. Nega tive Homans sign NEUROLOGIC: Normal speech and tone. A&O x 3, moves all extremities, no obvious focal deficits PSYCHIATRIC: Normal affect, normal mood. Stable SKIN: No ulcerations or rashes, good skin turgor, no jaundice VASCULAR: Good capillary refill, neurovascular bundle appears to be intact Labs: Labs: Laboratory Tests Test 12/11/20 16:20 White Blood Count 8.7 x10^3/uL (4.0-11.0) Red Blood Count 4.75 x10^6/uL (3.50-5.40) Hemoglobin 13.6 g/dL (12.0-15.5) Hematocrit 40.4 % (36.0-47.0) Mean Corpuscular Volume 85 fL (79-100) Mean Corpuscular Hemoglobin 29 pg (25-35) Mean Corpuscular Hemoglobin Concent 34 g/dL (31-37) Red Cell Distribution Width 16.8 % (11.5-14.5) Platelet Count 217 x10^3/uL (140-400) Neutrophils (%) (Auto) 67 % (31-73) Lymphocytes (%) (Auto) 26 % (24-48) Monocytes (%) (Auto) 6 % (0-9) Eosinophils (%) (Auto) 0 % (0-3) Basophils (%) (Auto) 1 % (0-3) Neutrophils # (Auto) 5.9 x10^3/uL (1.8-7.7) Lymphocytes # (Auto) 2.3 x10^3/uL (1.0-4.8) Monocytes # (Auto) 0.5 x10^3/uL (0.0-1.1) Eosinophils # (Auto) 0.0 x10^3/uL (0.0-0.7) Basophils # (Auto) 0.1 x10^3/uL (0.0-0.2) Prothrombin Time 26.4 SEC (11.7-14.0) Prothromb Time International Ratio 2.5 (0.8-1.1) Activated Partial Thromboplast Time 35 SEC (24-38) Sodium Level 146 mmol/L (136-145) Potassium Level 4.3 mmol/L (3.5-5.1) Chloride Level 110 mmol/L (98-107) Carbon Dioxide Level 25 mmol/L (21-32) Anion Gap 11 (6-14) Blood Urea Nitrogen 19 mg/dL (7-20) Creatinine 1.1 mg/dL (0.6-1.0) Estimated GFR (Cockcroft-Gault) 59.9 BUN/Creatinine Ratio 17 (6-20) Glucose Level 126 mg/dL (70-99) Calcium Level 8.9 mg/dL (8.5-10.1) Total Bilirubin 0.3 mg/dL (0.2-1.0) Aspartate Amino Transf (AST/SGOT) 21 U/L (15-37) Alanine Aminotransferase (ALT/SGPT) 34 U/L (14-59) Alkaline Phosphatase 84 U/L (46-116) Troponin I Quantitative < 0.017 ng/mL (0.000-0.055) Total Protein 7.0 g/dL (6.4-8.2) Albumin 3.8 g/dL (3.4-5.0) Albumin/Globulin Ratio 1.2 (1.0-1.7) Laboratory Tests Test 12/11/20 16:20 White Blood Count 8.7 x10^3/uL (4.0-11.0) Red Blood Count 4.75 x10^6/uL (3.50-5.40) Hemoglobin 13.6 g/dL (12.0-15.5) Hematocrit 40.4 % (36.0-47.0) Mean Corpuscular Volume 85 fL (79-100) Mean Corpuscular Hemoglobin 29 pg (25-35) Mean Corpuscular Hemoglobin Concent 34 g/dL (31-37) Red Cell Distribution Width 16.8 % (11.5-14.5) Platelet Count 217 x10^3/uL (140-400) Neutrophils (%) (Auto) 67 % (31-73) Lymphocytes (%) (Auto) 26 % (24-48) Monocytes (%) (Auto) 6 % (0-9) Eosinophils (%) (Auto) 0 % (0-3) Basophils (%) (Auto) 1 % (0-3) Neutrophils # (Auto) 5.9 x10^3/uL (1.8-7.7) Lymphocytes # (Auto) 2.3 x10^3/uL (1.0-4.8) Monocytes # (Auto) 0.5 x10^3/uL (0.0-1.1) Eosinophils # (Auto) 0.0 x10^3/uL (0.0-0.7) Basophils # (Auto) 0.1 x10^3/uL (0.0-0.2) Prothrombin Time 26.4 SEC (11.7-14.0) Prothromb Time International Ratio 2.5 (0.8-1.1) Activated Partial Thromboplast Time 35 SEC (24-38) Sodium Level 146 mmol/L (136-145) Potassium Level 4.3 mmol/L (3.5-5.1) Chloride Level 110 mmol/L (98-107) Carbon Dioxide Level 25 mmol/L (21-32) Anion Gap 11 (6-14) Blood Urea Nitrogen 19 mg/dL (7-20) Creatinine 1.1 mg/dL (0.6-1.0) Estimated GFR (Cockcroft-Gault) 59.9 BUN/Creatinine Ratio 17 (6-20) Glucose Level 126 mg/dL (70-99) Calcium Level 8.9 mg/dL (8.5-10.1) Total Bilirubin 0.3 mg/dL (0.2-1.0) Aspartate Amino Transf (AST/SGOT) 21 U/L (15-37) Alanine Aminotransferase (ALT/SGPT) 34 U/L (14-59) Alkaline Phosphatase 84 U/L (46-116) Troponin I Quantitative < 0.017 ng/mL (0.000-0.055) Total Protein 7.0 g/dL (6.4-8.2) Albumin 3.8 g/dL (3.4-5.0) Albumin/Globulin Ratio 1.2 (1.0-1.7) Images: Images Chest CTA negative for PE CXR Impression: 1. No acute cardiopulmonary process. Assessment/Plan Assessment/Plan Chest pain concerning for unstable angina/NSTEMI possible musculoskeletal Hypernatremia, hyperchloremia due to high dehydration NALDO due to vasomotor nephropathy Hypertensive urgency History of diabetes mellitus type 2 History of atrial fibrillation currently on warfarin History of hypertension Strong family history with 2 siblings with CABG EKG showing NSR Troponin negative x1, will continue to trend Continue aspirin, consider Plavix if intermediate risk will defer this to cardiology Cardiology consulted for predischarge stress testing or left heart cath Continue nitroglycerin as needed for pain Continue beta-cristopher if blood pressures allow Continue high intensity statins IV morphine as needed Consider Lovenox Maintain O2 sats between 88 to 95% Trend troponins Repeat EKG in the a.m. Continue telemetry monitoring Monitor for electrolyte abnormalities Avoid NSAIDs Continue IV fluids In addition to my E/M visit, advance care planning done with A total time of 20 minutes was spent from 610 to 630 face to face in discussion with the patient and family regarding their goals of care, Justifications for Admission Other Justification SIRI GLOVER MD Dec 11, 2020 17:52
[2020-12-11] MEDS ORDERED: ASPIRIN CHEWABLE 81 MG TABLET. PO ONE (18:00)
[2020-12-11] MEDS ORDERED: MORPHINE SULFATE 2 MG/ML VIAL. IV ONE (18:15)
[2020-12-11 18:37] VITALS: BP 168/86
[2020-12-11] MEDS ORDERED: SENNOSIDES 8.6 MG TABLET PO PRN (19:00)
[2020-12-11] MEDS ORDERED: LABETALOL 20 MG/4 ML DISP.SYRIN. IVP PRN (19:00)
[2020-12-11] MEDS ORDERED: DEXTROSE 50% 25 GM / 50ML DISP.SYRIN. IV PRN ×2 (19:00)
[2020-12-11] MEDS ORDERED: ACETAMINOPHEN 325 MG TABLET. PO PRN (19:00)
[2020-12-11] MEDS ORDERED: ONDANSETRON PF 4 MG/2 ML VIAL. IVP PRN (19:00)
[2020-12-11] MEDS ORDERED: DOCUSATE SODIUM 100 MG CAPSULE. PO PRN (19:00)
[2020-12-11] MEDS ORDERED: MORPHINE SULFATE 2 MG/ML VIAL. IVP PRN (19:00)
[2020-12-11] MEDS ORDERED: ALBU2SYR2 PO (19:33)
[2020-12-11] MEDS: LISINOPRIL 20 MG TABLET PO SCH (19:41)
[2020-12-11] MEDS: IV NORMAL SALINE 1000ML BAG 1,000 ML IV SCH (19:41)
[2020-12-11] MEDS ORDERED: ENOXAPARIN 40 MG/0.4 ML SYRINGE. SQ SCH (21:00)
[2020-12-11 22:27] VITALS: BP 132/77
[2020-12-12 02:33] VITALS: BP 141/72
[2020-12-12] MEDS: IV NORMAL SALINE 1000ML BAG 1,000 ML IV SCH (05:28)
[2020-12-12 06:41] LABS: BASO % 1 % (0-3); EOS # 0.1 x10^3/uL (0.0-0.7); EOS % 2 % (0-3); HEMATOCRIT 40.9 % (36.0-47.0); HEMOGLOBIN 13.6 g/dL (12.0-15.5); LYMPH # 2.5 x10^3/uL (1.0-4.8); LYMPH % 34 % (24-48); MEAN CORPUSCULAR HEMOGLOBIN 28 pg (25-35); MEAN CORPUSCULAR HGB CONC 33 g/dL (31-37); MEAN CORPUSCULAR VOLUME 85 fL (79-100); MONO # 0.5 x10^3/uL (0.0-1.1); MONO % 7 % (0-9); NEUT # 4.2 x10^3/uL (1.8-7.7); NEUT % 57 % (31-73); PLATELET COUNT 221 x10^3/uL (140-400); RED BLOOD COUNT 4.82 x10^6/uL (3.50-5.40); RED CELL DISTRIBUTION WIDTH 16.6 % (11.5-14.5); WHITE BLOOD COUNT 7.3 x10^3/uL (4.0-11.0)
[2020-12-12 06:48] LABS: CALCIUM 8.3 mg/dL (8.5-10.1); CREATININE 0.9 mg/dL (0.6-1.0); GFR 75.6; MAGNESIUM 1.7 mg/dL (1.8-2.4); POTASSIUM 3.8 mmol/L (3.5-5.1)
[2020-12-12 07:00] VITALS: BP 115/68
[2020-12-12] MEDS ORDERED: IV 1/2 NORMAL SALINE 1,000 ML IV SCH (07:45)
[2020-12-12] MEDS: INSULIN LISPRO 300 UNITS/3 ML VIAL. SQ SCH ×3 (08:13→17:00)
[2020-12-12] MEDS: LISINOPRIL 20 MG TABLET PO SCH (08:15)
[2020-12-12] MEDS ORDERED: PRED2.5T PO (08:20)
[2020-12-12] MEDS ORDERED: SITA50TA PO (08:20)
[2020-12-12] MEDS ORDERED: ATOR20TA58 PO (08:22)
[2020-12-12] MEDS ORDERED: WARF-31 PO (08:22)
[2020-12-12] MEDS ORDERED: CHOL500050 PO (08:23)
[2020-12-12] MEDS ORDERED: POTASSIUM BICARB 20 MEQ EFFERVESCENT TABLET. PO ONE (08:30)
[2020-12-12] MEDS ORDERED: MAGNESIUM SULFATE 2GM 50 ML IV ONE (09:00)
[2020-12-12 11:00] VITALS: BP 115/66
--- NOTE | 2020-12-12 11:00 | PDOC2 ---
CARDIAC CONSULT DATE OF CONSULT Date of Consult DATE: 12/12/20 TIME: 10:34 REASON FOR CONSULT Reason for Consult: Chest pain REFERRING PHYSICIAN Referring Physician: Ari SOURCE Source: Chart review, Patient HISTORY OF PRESENT ILLNESS HISTORY OF PRESENT ILLNESS This is a pleasant 65 yo female admitted for complains of chest pain. Reports that this is reproducible with deep breathing. CTA did not reveale any PE. She does have hx of DVT and takes coumadin for it. Reports no palpitations. No SOA and no nausea or vomiting. No changes to her activity tolerance. Denies any prior falls or injury. No past CAD. No indigestion nor bloating. PAST MEDICAL HISTORY Cardiovascular: HTN, Hyperlipidemia Pulmonary: Asthma (?) CENTRAL NERVOUS SYSTEM: Other (No pertinent history) Hepatobiliary: No pertinent hx Psych: Anxiety Musculoskeletal: Osteoarthritis Rheumatologic: Rheumatoid arthritis Infectious disease: No pertinent hx ENT: Allergic Rhinitis Endocrine: Diabetes, Hyperthyroidism Dermatology: No pertinent hx PAST SURGICAL HISTORY Past Surgical History: Cataract Removal, Total knee replacement (bilateral ) FAMILY HISTORY Family History: Coronary Artery Disease (sister) SOCIAL HISTORY Smoke: No ALCOHOL: none Drugs: None Lives: Alone CURRENT MEDICATIONS CURRENT MEDICATIONS Current Medications Medications (Trade) Dose Ordered Sig/Bill Route PRN Reason Start Time Stop Time Status Last Admin Dose Admin Iohexol (Omnipaque 350 Mg/ml) 100 ml 1X ONCE IV 12/11/20 17:00 12/11/20 17:01 DC 12/11/20 16:58 Morphine Sulfate (Morphine Sulfate) 2 mg 1X ONCE IV 12/11/20 18:15 12/11/20 18:16 DC 12/11/20 18:14 Sodium Chloride 1,000 ml @ 100 mls/hr Q10H IV 12/11/20 20:00 12/12/20 05:28 Morphine Sulfate (Morphine Sulfate) 2 mg PRN Q2HR PRN IVP SEVERE PAIN 7-10 12/11/20 19:00 12/12/20 18:59 12/12/20 02:24 Amlodipine Besylate (Norvasc) 10 mg DAILY PO 12/11/20 19:00 12/12/20 08:15 Lisinopril (Prinivil) 20 mg DAILY PO 12/11/20 19:00 12/12/20 08:15 Sodium Chloride 1,000 ml @ 75 mls/hr [id number] IV 12/12/20 07:45 12/12/20 08:51 Magnesium Sulfate 50 ml @ 25 mls/hr 1X ONCE IV 12/12/20 09:00 12/12/20 10:59 12/12/20 08:51 Potassium Bicarbonate (Potassium Effervescent Tablet) 40 meq 1X ONCE PO 12/12/20 08:30 12/12/20 08:31 DC 12/12/20 08:51 ALLERGIES ALLERGIES: Coded Allergies: No Known Drug Allergies (Unverified , 01/13/19) ROS Review of System 14 point ROS evaluated with pertient posoitives noted per HPI PHYSICAL EXAM General: Alert, Oriented X3, Cooperative, No acute distress HEENT: Atraumatic, Mucous membr. moist/pink Lungs: Clear to auscultation, Normal air movement Heart: Regular rate (SR), Normal S1, Normal S2, No murmurs Abdomen: Soft, No tenderness Extremities: No cyanosis, No edema Skin: No breakdown, No significant lesion Neuro: Normal speech, Sensation intact Psych/Mental Status: Mental status NL, Mood NL MUSCULOSKELETAL: Osteoarthritic changes both hands VITALS/I&O VITALS/I&O: Vital Signs Date Time Temp Pulse Resp B/P (MAP) Pulse Ox O2 Delivery O2 Flow Rate FiO2 12/12/20 08:15 72 115/68 12/12/20 08:00 Room Air 12/12/20 07:00 97.6 14 94 97.6 I & O 12/11/20 12/11/20 12/12/20 15:00 23:00 07:00 Intake Total 200 ml 950 ml Balance 200 ml 950 ml LABS Lab: Laboratory Tests Test 12/11/20 16:20 12/11/20 19:03 12/11/20 20:31 12/12/20 01:00 White Blood Count 8.7 x10^3/uL (4.0-11.0) Red Blood Count 4.75 x10^6/uL (3.50-5.40) Hemoglobin 13.6 g/dL (12.0-15.5) Hematocrit 40.4 % (36.0-47.0) Mean Corpuscular Volume 85 fL (79-100) Mean Corpuscular Hemoglobin 29 pg (25-35) Mean Corpuscular Hemoglobin Concent 34 g/dL (31-37) Red Cell Distribution Width 16.8 % (11.5-14.5) H Platelet Count 217 x10^3/uL (140-400) Neutrophils (%) (Auto) 67 % (31-73) Lymphocytes (%) (Auto) 26 % (24-48) Monocytes (%) (Auto) 6 % (0-9) Eosinophils (%) (Auto) 0 % (0-3) Basophils (%) (Auto) 1 % (0-3) Neutrophils # (Auto) 5.9 x10^3/uL (1.8-7.7) Lymphocytes # (Auto) 2.3 x10^3/uL (1.0-4.8) Monocytes # (Auto) 0.5 x10^3/uL (0.0-1.1) Eosinophils # (Auto) 0.0 x10^3/uL (0.0-0.7) Basophils # (Auto) 0.1 x10^3/uL (0.0-0.2) Prothrombin Time 26.4 SEC (11.7-14.0) H Prothrombin Time INR 2.5 (0.8-1.1) H Activated Partial Thromboplast Time 35 SEC (24-38) Sodium Level 146 mmol/L (136-145) H Potassium Level 4.3 mmol/L (3.5-5.1) Chloride Level 110 mmol/L (98-107) H Carbon Dioxide Level 25 mmol/L (21-32) Anion Gap 11 (6-14) Blood Urea Nitrogen 19 mg/dL (7-20) Creatinine 1.1 mg/dL (0.6-1.0) H Estimated GFR (Cockcroft-Gault) 59.9 BUN/Creatinine Ratio 17 (6-20) Glucose Level 126 mg/dL (70-99) H Calcium Level 8.9 mg/dL (8.5-10.1) Total Bilirubin 0.3 mg/dL (0.2-1.0) Aspartate Amino Transferase (AST) 21 U/L (15-37) Alanine Aminotransferase (ALT) 34 U/L (14-59) Alkaline Phosphatase 84 U/L (46-116) Troponin I Quantitative < 0.017 ng/mL (0.000-0.055) < 0.017 ng/mL (0.000-0.055) < 0.017 ng/mL (0.000-0.055) Total Protein 7.0 g/dL (6.4-8.2) Albumin 3.8 g/dL (3.4-5.0) Albumin/Globulin Ratio 1.2 (1.0-1.7) Glucose (Fingerstick) 176 mg/dL (70-99) H Test 12/12/20 06:00 12/12/20 08:12 White Blood Count 7.3 x10^3/uL (4.0-11.0) Red Blood Count 4.82 x10^6/uL (3.50-5.40) Hemoglobin 13.6 g/dL (12.0-15.5) Hematocrit 40.9 % (36.0-47.0) Mean Corpuscular Volume 85 fL (79-100) Mean Corpuscular Hemoglobin 28 pg (25-35) Mean Corpuscular Hemoglobin Concent 33 g/dL (31-37) Red Cell Distribution Width 16.6 % (11.5-14.5) H Platelet Count 221 x10^3/uL (140-400) Neutrophils (%) (Auto) 57 % (31-73) Lymphocytes (%) (Auto) 34 % (24-48) Monocytes (%) (Auto) 7 % (0-9) Eosinophils (%) (Auto) 2 % (0-3) Basophils (%) (Auto) 1 % (0-3) Neutrophils # (Auto) 4.2 x10^3/uL (1.8-7.7) Lymphocytes # (Auto) 2.5 x10^3/uL (1.0-4.8) Monocytes # (Auto) 0.5 x10^3/uL (0.0-1.1) Eosinophils # (Auto) 0.1 x10^3/uL (0.0-0.7) Basophils # (Auto) 0.0 x10^3/uL (0.0-0.2) Sodium Level 147 mmol/L (136-145) H Potassium Level 3.8 mmol/L (3.5-5.1) Chloride Level 111 mmol/L (98-107) H Carbon Dioxide Level 26 mmol/L (21-32) Anion Gap 10 (6-14) Blood Urea Nitrogen 13 mg/dL (7-20) Creatinine 0.9 mg/dL (0.6-1.0) Estimated GFR (Cockcroft-Gault) 75.6 Glucose Level 106 mg/dL (70-99) H Calcium Level 8.3 mg/dL (8.5-10.1) L Phosphorus Level 3.0 mg/dL (2.6-4.7) Magnesium Level 1.7 mg/dL (1.8-2.4) L Troponin I Quantitative < 0.017 ng/mL (0.000-0.055) Glucose (Fingerstick) 105 mg/dL (70-99) H Laboratory Tests 12/11/20 16:20 12/12/20 06:00 Laboratory Tests 12/11/20 16:20 12/12/20 06:00 ASSESSMENT/PLAN ASSESSMENT/PLAN 1. Atypical chest pain: possibly MSK 2. DM2 3. HTN: controlled 4. HLP 5. Hx of DVT with chronic coumadin therapy CTA negative for PE Recommendations 1. TTE, TSH and FLP 2. Continue coumadin therpy and statin 3. If TTE is unremarkable then will arrange for outpt treadmill MPI for further risk startification 4. Replace Mg continue home BP meds. NADEEM ALLAN APRN Dec 12, 2020 11:00
--- NOTE | 2020-12-12 14:16 | DISCH ---
DISCHARGE INSTRUCTIONS Condition on Discharge Condition on Discharge: Stable Activity After Discharge Activity Instructions for Disc: Activity as tolerated Lifting Instructions after Dis: Do not lift >10 pounds Exercise Instruction after Dis: Walk 15 min, 3 x per day Driving Instructions after Dis: Do not drive today Diet after Discharge Diet after Discharge: Cardiac Follow-Up Follow up with: PCP within 2 weeks of discharge Follow Up With: cardiology as needed SIRI GLOVER MD Dec 12, 2020 14:16
[2020-12-12 15:00] VITALS: BP 106/62
--- NOTE | 2020-12-12 15:47 | NUR ---
SS following for discharge planning. SS reviewed pt chart and discussed with pt RN. Pt is from home and is currently on room air. Discharge order on the chart for home with self care.
--- NOTE | 2020-12-12 16:53 | NUR ---
Discharge Note: MOISÉS BUI [address] Discharge instructions and discharge home medications reviewed with Patient and a copy given. All questions have been answered and understanding verbalized. The following instructions and handouts were given: d/c instructions, outpatient appointments instructions. Discontinued lines and drains: Peripheral IV intact. Patient discharged to Home or Self Care with Family Member via Wheelchair Dr. Bower notified that T4 lab has to be sent out and will not be resulted today. Ok'd to d/c since patient follows with "thyroid doctor" outside of hospital. Patient is going to call her doctor and make a follow up appt for next week.
--- NOTE | 2020-12-12 17:22 | CARD ---
MR#: [id number] Date of Study: 12/12/2020 Ordering Physician: NADEEM ALLAN, Referring Physician: NADEEM ALLAN Tech: Ervin Madrid [facility] APPROVED REPORT EXAM: Two-dimensional and M-mode echocardiogram with Doppler and color Doppler. Other Information Quality : GoodHR: 68bpm Rhythm : NSR INDICATION Chest Pain RISK FACTORS Hypertension Hyperlipidemia Diabetes 2D DIMENSIONS Left Atrium(2D)3.2 (1.6-4.0cm)IVSd1.4 (0.7-1.1cm) Aortic Root(2D)2.6 (2.0-3.7cm)LVDd4.5 (3.9-5.9cm) LVOT Diameter1.8 (1.8-2.4cm)PWd1.3 (0.7-1.1cm) LVDs2.2 (2.5-4.0cm)FS (%) 51.3 % SV74.6 ml Aortic Valve AoV Peak Iam.138.7cm/sAoV VTI30.8cm AO Peak GR.7.7mmHgLVOT Peak Iam.94.3cm/s AO Mean GR.4mmHgAVA (VMAX)1.68cm2 Mitral Valve MV E Emicuyys03.7cm/sMV E Peak Gr.4mmHg MV DECEL [id number] A Ysdzthym90.6cm/s MV E Mean Gr.1mmHgE/A Ratio0.8 Pulmonary Valve PV Peak Khuqxulo87.5cm/s Tricuspid Valve TR P. Kirotztn691jk/sTR Peak Gr.18mmHg Pulmonary Vein S1 Tbhyvzqh71.7cm/sD2 Wgzikwnv46.8cm/s LEFT VENTRICLE The left ventricle is normal size. There is mild concentric left ventricular hypertrophy. The left ve ntricular systolic function is normal and the ejection fraction is within normal range. LV ejection f raction is 55 to 60%. There is normal LV segmental wall motion. Tissue Doppler imaging reveals abnorm al left ventricular diastolic dysfunction. No left ventricle thrombus noted on this study. RIGHT VENTRICLE The right ventricle is normal size. There is normal right ventricular wall thickness. The right ventr icular systolic function is normal. ATRIA The left atrium size is normal. The right atrium size is normal. AORTIC VALVE The aortic valve is normal in structure and function. Doppler and Color Flow revealed no significant aortic regurgitation. There is no significant aortic valvular stenosis. There is no aortic valvular v egetation. MITRAL VALVE The mitral valve is normal in structure and function. There is no evidence of mitral valve prolapse. There is no mitral valve stenosis. Doppler and Color-flow revealed trace to mild mitral regurgitation . TRICUSPID VALVE The tricuspid valve is normal in structure and function. Doppler and Color Flow revealed trace to mil d tricuspid regurgitation. There is no tricuspid valve prolapse or vegetation. There is no tricuspid valve stenosis. PULMONIC VALVE The pulmonary valve is normal in structure and function. Doppler and Color Flow revealed no pulmonic valvular regurgitation. There is no pulmonic valvular stenosis. GREAT VESSELS The aortic root is normal in size. The ascending aorta is normal in size. The pulmonary artery is nor mal. PERICARDIAL EFFUSION There is no pleural effusion. There is no evidence of significant pericardial effusion. Critical Notification Critical Value: No <Conclusion> The left ventricle is normal size. The left ventricular systolic function is normal and the ejection fraction is within normal range. LV ejection fraction is 55 to 60%. There is mild concentric left ventricular hypertrophy. Doppler and Color Flow revealed no significant aortic regurgitation. There is no significant aortic valvular stenosis. Doppler and Color-flow revealed trace to mild mitral regurgitation. Doppler and Color Flow revealed trace to mild tricuspid regurgitation. Signed by : Toño Hernandez MD Electronically Approved : 12/12/2020 17:22:02
[2020-12-13] MEDS ORDERED: ENOXAPARIN 40 MG/0.4 ML SYRINGE. SQ SCH (16:00)
== END 2020-12-12 18:37 | disposition home or self-care (01) ==
LOC: ER 15:16 → 2 NORTH 17:38
PROVIDERS: ADMIT Internal Medicine; ATTEND Internal Medicine
DX: R07.89 Other chest pain (principal); N17.9 Acute kidney failure, unspecified; E87.0 Hyperosmolality and hypernatremia; E86.0 Dehydration; E87.8 Other disorders of electrolyte and fluid balance, not elsewhere classified; E11.9 Type 2 diabetes mellitus without complications; I48.91 Unspecified atrial fibrillation; I16.0 Hypertensive urgency; J45.909 Unspecified asthma, uncomplicated; M06.9 Rheumatoid arthritis, unspecified; E03.9 Hypothyroidism, unspecified; E78.5 Hyperlipidemia, unspecified; F41.9 Anxiety disorder, unspecified; E05.90 Thyrotoxicosis, unspecified without thyrotoxic crisis or storm; M19.90 Unspecified osteoarthritis, unspecified site; Z79.01 Long term (current) use of anticoagulants; Z86.718 Personal history of other venous thrombosis and embolism; Z87.442 Personal history of urinary calculi; Z96.653 Presence of artificial knee joint, bilateral; Z79.899 Other long term (current) drug therapy; Z98.890 Other specified postprocedural states; Z79.82 Long term (current) use of aspirin; Z98.49 Cataract extraction status, unspecified eye
CPT/HCPCS: 36415; 71045; 71275; 80048; 80053; 80061; 82962; 83735; 84100; 84436; 84443; 84484; 85025; 85610; 85730; 93306; 96361; 96365; 96366; 96375; 96376; 99285; G0378; J1815; J2270; J3475; J3490; J7030; Q9967; G0379

== ENCOUNTER → 2020-12-25 | Outpatient (CLI) | payer OTHER ==
[2020-12-12 15:00] VITALS: BP 106/62
[~2020-12-25] MED LIST changes: +ALBU2SYR2 PO; +ATOR20TA58 PO; +CHOL500050 PO; +SITA50TA PO; +WARF-31 PO
[2020-12-25 10:50] LABS: ALBUMIN 4.1 g/dL (3.4-5.0); ALBUMIN/GLOBULIN RATIO 1.3 (1.0-1.7); CALCIUM 9.2 mg/dL (8.5-10.1); CREATININE 1.2 mg/dL (0.6-1.0); GFR 54.2; POTASSIUM 4.1 mmol/L (3.5-5.1); TOTAL BILIRUBIN 0.3 mg/dL (0.2-1.0); TOTAL PROTEIN 7.2 g/dL (6.4-8.2)
[2020-12-25 10:52] LABS: CHOLESTEROL/HDL RATIO 2.6
[2020-12-25 10:59] LABS: HEMATOCRIT 42.7 % (36.0-47.0); RED BLOOD COUNT 4.98 x10^6/uL (3.50-5.40); RED CELL DISTRIBUTION WIDTH 16.6 % (11.5-14.5); WHITE BLOOD COUNT 8.1 x10^3/uL (4.0-11.0)
[2020-12-25 11:20] LABS: PROTHROMBIN TIME PATIENT 25.1 SEC (11.7-14.0)
[2020-12-25 11:32] LABS: FREE T4 0.76 ng/dL (0.76-1.46); THYROID STIM HORMONE (TSH) 3.755 uIU/mL (0.358-3.74)
[2020-12-26 00:09] LABS: HEMOGLOBIN A1C 6.9 % (4.8-5.6)
[2020-12-26 23:08] LABS: CREAT RD UR 108.7 mg/dL (Not Estab.); MICROALB RD UR 30.8 ug/mL (Not Estab.)
== END ==
LOC: LAB 09:57
PROVIDERS: ATTEND Nurse Practitioner Family
DX: E11.9 Type 2 diabetes mellitus without complications (principal); I10 Essential (primary) hypertension; E78.5 Hyperlipidemia, unspecified; E05.90 Thyrotoxicosis, unspecified without thyrotoxic crisis or storm; Z86.718 Personal history of other venous thrombosis and embolism
CPT/HCPCS: 36415; 80053; 80061; 82043; 82570; 83036; 84439; 84443; 85027; 85610

== ENCOUNTER → 2021-01-24 | Outpatient (CLI) | payer BC, OTHER ==
[2021-01-24 12:18] LABS: HEMATOCRIT 43.1 % (36.0-47.0); HEMOGLOBIN 14.2 g/dL (12.0-15.5); RED BLOOD COUNT 5.01 x10^6/uL (3.50-5.40); RED CELL DISTRIBUTION WIDTH 16.6 % (11.5-14.5); WHITE BLOOD COUNT 9.5 x10^3/uL (4.0-11.0)
[2021-01-24 12:27] LABS: PROTHROMBIN TIME PATIENT 24.9 SEC (11.7-14.0)
[2021-01-24 12:38] LABS: ALBUMIN 3.6 g/dL (3.4-5.0); ALBUMIN/GLOBULIN RATIO 0.9 (1.0-1.7); CALCIUM 9.3 mg/dL (8.5-10.1); CREATININE 1.1 mg/dL (0.6-1.0); GFR 59.9; POTASSIUM 4.6 mmol/L (3.5-5.1); TOTAL BILIRUBIN 0.3 mg/dL (0.2-1.0); TOTAL PROTEIN 7.6 g/dL (6.4-8.2)
[2021-01-24 12:39] LABS: CHOLESTEROL/HDL RATIO 2.7
[2021-01-24 12:48] LABS: FREE T4 0.79 ng/dL (0.76-1.46); THYROID STIM HORMONE (TSH) 1.483 uIU/mL (0.358-3.74)
[2021-01-25 01:16] LABS: HEMOGLOBIN A1C 7.2 % (4.8-5.6)
== END ==
LOC: LAB 12:00
PROVIDERS: ATTEND Nurse Practitioner Family
DX: E11.9 Type 2 diabetes mellitus without complications (principal); I10 Essential (primary) hypertension; E78.5 Hyperlipidemia, unspecified; E05.90 Thyrotoxicosis, unspecified without thyrotoxic crisis or storm; Z86.718 Personal history of other venous thrombosis and embolism
CPT/HCPCS: 36415; 80053; 80061; 82043; 83036; 84439; 84443; 85027; 85610

== ENCOUNTER 2021-02-14 03:30 | Emergency (ER) | payer OTHER ==
[~2021-02-14] VITALS: Ht 160 cm; Wt 72.7 kg
[2021-02-14] MEDS ORDERED: TRAM-48 PO (04:12)
--- NOTE | 2021-02-14 04:13 | PHYS DOC ---
Past Medical History Past Medical History: Arthritis, Diabetes-Type II, DVT, Hypothyroid, Kidney Stone Past Surgical History: Other Additional Past Surgical Histo: bilat knee, r hip, kidney stents Smoking Status: Former Smoker Alcohol Use: None Drug Use: None General Adult EDM: Chief Complaint: FOOT INJURY PAIN HPI: HPI: Patient is a 65 year old female presents with a chief complaint of left ankle pain. Patient states she injured her left ankle while chasing her granddaughter. Patient has pain left ankle lateral malleolus. On exam there is some mild swelling and some tenderness to palpation. Patient denies any other injuries. Review of Systems: Review of Systems: Constitutional: Denies fever or chills. [] Eyes: Denies change in visual acuity. [] HENT: Denies nasal congestion or sore throat. [] Respiratory: Denies cough or shortness of breath. [] Cardiovascular: Denies chest pain or edema. [] GI: Denies abdominal pain, nausea, vomiting, bloody stools or diarrhea. [] : Denies dysuria. [] Musculoskeletal: Denies back pain positive ankle pain Integument: Denies rash. [] Neurologic: Denies headache, focal weakness or sensory changes. [] Endocrine: Denies polyuria or polydipsia. [] Lymphatic: Denies swollen glands. [] Psychiatric: Denies depression or anxiety. [] Heart Score: C/O Chest Pain: N/A Risk Factors: Risk Factors: DM, Current or recent (<one month) smoker, HTN, HLP, family history of CAD, obesity. Risk Scores: Score 0 - 3: 2.5% MACE over next 6 weeks - Discharge Home Score 4 - 6: 20.3% MACE over next 6 weeks - Admit for Clinical Observation Score 7 - 10: 72.7% MACE over next 6 weeks - Early Invasive Strategies Allergies: Allergies: Allergies Coded Allergies Type Severity Reaction Last Updated Verified No Known Drug Allergies 01/13/19 No Physical Exam: PE: Constitutional: Well developed, well nourished, no acute distress, non-toxic appearance. [] HENT: Normocephalic, atraumatic, bilateral external ears normal, oropharynx moist, no oral exudates, nose normal. [] Eyes: PERRLA, EOMI, conjunctiva normal, no discharge. [] Neck: Normal range of motion, no tenderness, supple, no stridor. [] Cardiovascular:Heart rate regular rhythm, no murmur [] Lungs & Thorax: Bilateral breath sounds clear to auscultation [] Abdomen: Bowel sounds normal, soft, no tenderness, no masses, no pulsatile masses. [] Skin: Warm, dry, no erythema, no rash. [] Back: No tenderness, no CVA tenderness. [] Extremities: No tenderness, no cyanosis, no clubbing, ROM intact, no edema. [Swelling left ankle tenderness to palpation lateral malleolus Neurologic: Alert and oriented X 3, normal motor function, normal sensory function, no focal deficits noted. [] Psychologic: Affect normal, judgement normal, mood normal. [] Current Patient Data: Vital Signs: Vital Signs Date Time Temp Pulse Resp B/P (MAP) Pulse Ox O2 Delivery O2 Flow Rate FiO2 02/14/21 03:40 97.6 89 18 120/71 (77) 96 Room Air 97.6 EKG: EKG: [] Radiology/Procedures: Radiology/Procedures: [] Impression: wet read ankle negative for acute fracture Course & Med Decision Making: Course & Med Decision Making Pertinent Labs and Imaging studies reviewed. (See chart for details) [] Dragon Disclaimer: [email or web address] Disclaimer: This electronic medical record was generated, in whole or in part, using a voice recognition dictation system. Departure Departure Impression: Primary Impression: Ankle sprain Disposition: 01 HOME / SELF CARE / HOMELESS Referrals: [facility] APRN (PCP) JESSE ALFARO DPM Patient Instructions: Ankle Sprain Scripts Tramadol Hcl (ULTRAM) 50 Mg Tablet 1 TAB PO PRN Q6HRS PRN for pain MDD 4 Tablet(s) for 7 Days, #28 TAB 0 Refills Prov: KIMBERLY ORANTES DO 02/14/21 KIMBERLY ORANTES DO Feb 14, 2021 04:13
[2021-02-14] MEDS ORDERED: ACETAMINOPHEN 325 MG TABLET. PO ONE (04:30)
--- NOTE | 2021-02-14 04:31 | RAD ---
Left ankle x-rays 3 views HISTORY: Left ankle pain. FINDINGS: No fracture. No dislocation. Prominent bone spurs along the dorsal talonavicular joint. Art erial vascular calcifications. Scattered calcifications throughout the calf likely due to extensive p hleboliths which could be indicative of venous stasis. There is diffuse soft tissue edema and swellin g throughout the lower calf and ankle. IMPRESSION: No acute osseous injury. Diffuse ankle lower calf soft tissue edema and swelling. See abo ve. Electronically signed by: Montana Adrian MD (02/14/2021 4:29 AM) [facility]KEY
[2021-02-14 04:39] VITALS: BP 139/80
== END 2021-02-14 04:42 | disposition home or self-care (01) ==
LOC: ER 03:30
DX: S93.402A Sprain of unspecified ligament of left ankle, initial encounter (principal); M19.90 Unspecified osteoarthritis, unspecified site; E11.9 Type 2 diabetes mellitus without complications; E03.9 Hypothyroidism, unspecified; Z87.442 Personal history of urinary calculi; Z86.718 Personal history of other venous thrombosis and embolism; X58.XXXA Exposure to other specified factors, initial encounter; Y93.89 Activity, other specified; Y92.89 Other specified places as the place of occurrence of the external cause; Y99.8 Other external cause status
CPT/HCPCS: 73610; 99284

== ENCOUNTER → 2021-02-19 | Outpatient (CLI) | payer OTHER ==
[2021-02-14 04:39] VITALS: BP 139/80
[~2021-02-19] MED LIST changes: +TRAM-48 PO
--- NOTE | 2021-02-21 10:26 | KCIC ---
Exam Date: 02/19/2021 1:40 PM MRI OF RIGHT UPPER EXTREMITY WITHOUT CONTRAST Indication: Reason: BICEPS MUSCLE TEAR / Spl. Instructions: Puneet deformity is distal third of upper arm. / History: Pt was swatting at a bug and felt a strain in mid to distal bicep.. TECHNIQUE: Multiplanar MR imaging of the right humerus was performed without intravenous contrast. FINDINGS: Marked motion artifact limits evaluation. There is a complete tear of the long head of the biceps tendon with retraction to the mid humeral sha ft. Fluid signal in this region is consistent with a small hematoma measuring approximately 1.5 cm. The short head of the biceps is intact. The distal biceps tendon is intact. Brachioradialis tendon is intact. Tendinopathy is seen involving the supraspinatus and infraspinatus tendons. There is likely a small focal bursal sided partial-thickness tear involving the insertional fibers of the infraspinatus tendo n measuring approximately 3 mm, though the exam is not optimized to evaluate the rotator cuff. Subsc apularis and teres minor tendons appear normal. Rotator cuff musculature demonstrates normal signal and bulk. Degenerative changes seen at the acromioclavicular and glenohumeral joints. Small fluid in the subac romial/subdeltoid bursa is consistent with mild bursitis. There is an intact type II acromion. The distal triceps tendon appears attenuated with abnormal increased signal, as well as surrounding f luid signal. Findings are consistent with moderate strain or partial tear of the distal triceps tend on. Degenerative changes are seen in the elbow. The exam is not optimized to evaluate the finer structur es of the elbow, though the collateral ligaments appear intact. Common flexor and common extensor te ndons are intact. IMPRESSION: Complete tear of the long head of the biceps tendon with retraction and small hematoma. The short he ad of the biceps tendon and the distal biceps tendon are intact. Moderate strain or partial tear involving the distal triceps tendon. Electronically signed by: Sean Levine MD (02/21/2021 10:24 AM) [facility]
== END ==
LOC: KCIC MRI 13:26
PROVIDERS: ATTEND Nurse Practitioner Family
DX: S46.111A Strain of muscle, fascia and tendon of long head of biceps, right arm, initial encounter (principal); M19.021 Primary osteoarthritis, right elbow; X58.XXXA Exposure to other specified factors, initial encounter; Y93.89 Activity, other specified; Y92.89 Other specified places as the place of occurrence of the external cause; Y99.8 Other external cause status
CPT/HCPCS: 73218

== ENCOUNTER → 2021-03-26 | Outpatient (CLI) | payer OTHER ==
[2021-03-26 14:36] LABS: PROTHROMBIN TIME PATIENT 25.7 SEC (11.7-14.0)
[2021-03-26 14:44] LABS: HEMATOCRIT 42.6 % (36.0-47.0); RED BLOOD COUNT 4.84 x10^6/uL (3.50-5.40); RED CELL DISTRIBUTION WIDTH 15.6 % (11.5-14.5); WHITE BLOOD COUNT 8.8 x10^3/uL (4.0-11.0)
[2021-03-26 14:47] LABS: ALBUMIN 3.7 g/dL (3.4-5.0); CALCIUM 9.3 mg/dL (8.5-10.1); CHOLESTEROL/HDL RATIO 2.7; CREATININE 1.3 mg/dL (0.6-1.0); GFR 49.4; POTASSIUM 4.5 mmol/L (3.5-5.1); TOTAL BILIRUBIN 0.3 mg/dL (0.2-1.0); TOTAL PROTEIN 7.5 g/dL (6.4-8.2)
[2021-03-26 14:57] LABS: FREE T4 0.67 ng/dL (0.76-1.46); THYROID STIM HORMONE (TSH) 1.515 uIU/mL (0.358-3.74)
[2021-03-27 07:20] LABS: HEMOGLOBIN A1C 6.9 % (4.8-5.6)
== END ==
LOC: LAB 13:57
PROVIDERS: ATTEND Nurse Practitioner Family
DX: I10 Essential (primary) hypertension (principal); E11.9 Type 2 diabetes mellitus without complications; E78.5 Hyperlipidemia, unspecified; E05.90 Thyrotoxicosis, unspecified without thyrotoxic crisis or storm; Z86.718 Personal history of other venous thrombosis and embolism
CPT/HCPCS: 36415; 80053; 80061; 82043; 83036; 84439; 84443; 85027; 85610

== ENCOUNTER → 2021-05-05 | Outpatient (CLI) | payer OTHER ==
[2021-05-05 11:38] LABS: PROTHROMBIN TIME PATIENT 27.4 SEC (11.7-14.0)
== END ==
LOC: LAB 11:02
PROVIDERS: ATTEND Nurse Practitioner Family
DX: Z86.718 Personal history of other venous thrombosis and embolism (principal)
CPT/HCPCS: 36415; 85610

== ENCOUNTER → 2021-06-11 | Outpatient (CLI) | payer BC, OTHER ==
--- NOTE | 2021-06-11 17:24 | RAD ---
Bilateral digital screening 2-D and 3-D (tomosynthesis) mammogram: Reason for examination: Routine screening. Comparison is made to previous mammograms from 05/25/2020 and 04/13/2019. Bilateral mammograms in CC and oblique projections were obtained with 2-D imaging and 3-D tomosynthes is imaging and reviewed on the workstation. Interpretation was made with the benefit of CAD. Findings: Breast density: Category C. The breasts are heterogeneously dense, which may obscure small masses. There are no new suspicious masses, malignant appearing calcifications or architectural distortion. T here are multiple similar groups of benign calcifications in both breasts which are consistent with d egenerative fibroadenomas. There are tiny oval circumscribed masses in the right breast which are sta ble and may be due to benign masses and/or duct ectasia. Impression: No evidence of malignancy. ASSESSMENT: BI-RADS 2. Benign findings. Recommendations: Routine screening mammograms. This patient's information has been entered into a reminder system for the patient to be notified wit h the results of her examination and a target date for the next mammogram. Your patient's mammogram demonstrates that she has dense breast tissue (breast density category C or D), which could hide abnormalities, and if she has other risk factors for breast cancer that have bee n identified, she might benefit from supplemental screening tests that may be suggested by you as her ordering physician. Dense breast tissue, in and of itself, is a relatively common condition. Therefo re, this information is not provided to cause undue concern, but rather to raise your awareness and t o promote discussion with your patient regarding the presence of other risk factors, in addition to d ense breast tissue. Electronically signed by: Kiya Mnae MD (06/11/2021 5:22 PM) [id number]
== END ==
LOC: MAMMO 13:55
PROVIDERS: ATTEND Nurse Practitioner Family
DX: Z12.31 Encounter for screening mammogram for malignant neoplasm of breast (principal)
CPT/HCPCS: 77063; 77067

== ENCOUNTER → 2021-06-23 | Outpatient (CLI) | payer OTHER ==
[2021-06-23 14:46] LABS: PROTHROMBIN TIME PATIENT 26.3 SEC (11.7-14.0)
== END ==
LOC: LAB 14:03
PROVIDERS: ATTEND Nurse Practitioner Family
DX: Z86.718 Personal history of other venous thrombosis and embolism (principal)
CPT/HCPCS: 36415; 85610

== ENCOUNTER → 2021-07-24 | Outpatient (CLI) | payer OTHER ==
--- NOTE | 2021-07-24 17:18 | KCIC ---
Right hand 3 views. HISTORY: Pain and bruising swelling second and third metacarpals, kicked in hand 3 views were taken of the right hand. There is been joint replacements at the third, fourth and fifth metacarpal phalangeal joints. There is arthritis at the interphalangeal joint of the thumb. There is arthritis at the wrist joint between the radius and carpal bones and between the ulna and carpal bon es. There is vascular calcification. There is no acute fracture. IMPRESSION: 1. Arthritis in the hands and wrists. 2. No acute fracture. Electronically signed by: Shady Dougherty MD (07/24/2021 5:15 PM) [id number]
== END ==
LOC: KCIC 15:01
PROVIDERS: ATTEND Nurse Practitioner Family
DX: M13.841 Other specified arthritis, right hand (principal); M79.641 Pain in right hand
CPT/HCPCS: 73130

== ENCOUNTER → 2021-09-22 | Outpatient (CLI) | payer OTHER ==
[2021-09-22 09:01] LABS: CHOLESTEROL/HDL RATIO 2.5
[2021-09-23 03:14] LABS: HEMOGLOBIN A1C 6.9 % (4.8-5.6)
== END ==
LOC: LAB 07:16
PROVIDERS: ATTEND Nurse Practitioner Family
DX: E11.9 Type 2 diabetes mellitus without complications (principal)
CPT/HCPCS: 36415; 80061; 83036

== ENCOUNTER → 2021-10-27 | Outpatient (CLI) | payer OTHER ==
[2021-10-27 10:42] LABS: CHOLESTEROL/HDL RATIO 2.5
[2021-10-28 04:11] LABS: HEMOGLOBIN A1C 7.2 % (4.8-5.6)
== END ==
LOC: LAB 09:33
PROVIDERS: ATTEND Nurse Practitioner Family
DX: E11.9 Type 2 diabetes mellitus without complications (principal)
CPT/HCPCS: 36415; 80061; 83036